=== PATIENT | male | born 1975 | race Caucasian/White ===

== ENCOUNTER 2018-06-23 09:14 | Emergency (ER) | payer MEDICAID ==
[~2018-06-23] VITALS: Ht 170.2 cm; Wt 70.0 kg
[2018-06-23 09:24] VITALS: Ht 170.2 cm; Wt 70.0 kg
[2018-06-23] MEDS ORDERED: LORAZEPAM 2 MG INJ IV ONE (09:30)
--- NOTE | 2018-06-23 10:04 | ERD ---
ER Documentation Chief Complaint Chief Complaint Witnessed SZ lasting aprox 60 sec HPI This is a 42-year-old male who presents for evaluation with apparently was a tonic-clonic seizure, which lasted about 60 seconds, and self resolved. The patient was actually postictal, does have been of liquor store, and was witnessed by others. He did not have any chest pain, he does have a history of alcohol use. He denies any prior history of seizures, he denies any pain currently. He denies prior history of alcohol withdrawal. ROS All systems reviewed and are negative except as per history of present illness. Medications Home Meds No Active Prescriptions or Reported Meds Allergies Allergies: Coded Allergies: No Known Allergy (Unverified , 06/23/18) PMhx/Soc Medical and Surgical Hx: pt denies Medical Hx, pt denies Surgical Hx History of Surgery: No Anesthesia Reaction: No Hx Neurological Disorder: No Hx Respiratory Disorders: No Hx Cardiac Disorders: No Hx Psychiatric Problems: No Hx Miscellaneous Medical Probl: No Hx Alcohol Use: Yes Hx Substance Use: No Hx Tobacco Use: No Smoking Status: Never smoker Physical Exam Vitals Vital Signs Date Temp Pulse Resp B/P (MAP) Pulse Ox O2 O2 Flow FiO2 Time Delivery Rate 06/23/18 99.9 113 20 143/107 100 09:24 (119) Physical Exam Const: Disheveled appearing, Head: Atraumatic Eyes: Normal Conjunctiva ENT: Normal External Ears, Nose and Mouth. Neck: Full range of motion. No meningismus. Resp: Clear to auscultation bilaterally Cardio: Regular rate and rhythm, no murmurs Abd: Soft, non tender, non distended. Normal bowel sounds Skin: No petechiae or rashes Back: No midline or flank tenderness Ext: No cyanosis, or edema Neur: Awake and alert Psych: Normal Mood and Affect Result Diagram: 06/23/18 0940 06/23/18 0940 Results 24 hrs Laboratory Tests Test 06/23/18 09:40 06/23/18 09:41 White Blood Count 5.6 10^3/ul Red Blood Count 3.53 10^6/ul Hemoglobin 9.2 g/dl Hematocrit 28.4 % Mean Corpuscular Volume 80.5 fl Mean Corpuscular Hemoglobin 26.1 pg Mean Corpuscular Hemoglobin Concent 32.4 g/dl Red Cell Distribution Width 22.5 % Platelet Count 131 10^3/UL Mean Platelet Volume 11.1 fl Immature Granulocytes % 0.400 % Neutrophils % 56.3 % Lymphocytes % 28.9 % Monocytes % 10.8 % Eosinophils % 1.4 % Basophils % 2.2 % Nucleated Red Blood Cells % 0.0 /100WBC Immature Granulocytes # 0.020 10^3/ul Neutrophils # 3.2 10^3/ul Lymphocytes # 1.6 10^3/ul Monocytes # 0.6 10^3/ul Eosinophils # 0.1 10^3/ul Basophils # 0.1 10^3/ul Nucleated Red Blood Cells # 0.0 10^3/ul Sodium Level 138 mmol/L Potassium Level 3.0 mmol/L Chloride Level 94 mmol/L Carbon Dioxide Level 24 mmol/L Anion Gap 20 Blood Urea Nitrogen 6 mg/dl Creatinine 0.69 mg/dl Est Glomerular Filtrat Rate mL/min > 60 mL/min Glucose Level 155 mg/dl Calcium Level 9.4 mg/dl Total Bilirubin 0.7 mg/dl Direct Bilirubin 0.00 mg/dl Indirect Bilirubin 0.7 mg/dl Aspartate Amino Transf (AST/SGOT) 182 IU/L Alanine Aminotransferase (ALT/SGPT) 61 IU/L Alkaline Phosphatase 137 IU/L Troponin I < 0.012 ng/ml Total Protein 8.1 g/dl Albumin 4.8 g/dl Globulin 3.30 g/dl Albumin/Globulin Ratio 1.45 Ethyl Alcohol Level < 10.0 mg/dl Bedside Glucose 157 mg/dL Current Medications Medications Dose Sig/Umair Start Time Status Last (Trade) Ordered Route PRN Stop Time Admin Dose Reason Admin Lorazepam 0.5 mg ONCE ONCE 06/23/18 DC 06/23/18 (Ativan) IV 09:30 09:47 06/23/18 09:31 Procedures/[facility] This is a 42-year-old male who presents for what appears to be a new onset tonic-clonic seizure, that was witnessed by bystanders. The episode self resolved, while in the ED he did not have any recurrent episode, given unclear history, and possibility at this time seizure, workup was ordered which included CBC,, and CT brain Noncon. Results were only remarkable for superficial scalp hematoma, his ethanol level was 0, he had no evidence of delirium tremens, and was not altered appearing, I discussed findings with the patient, and recommended follow-up with his primary care doctor for further evaluation of seizures, patient will be reported to [facility], at discharge patient was ambulatory and in no acute distress. Departure Diagnosis: Primary Impression: Seizure disorder Condition: Stable DANNY BAKER MD Jun 23, 2018 10:03
[2018-06-23 12:15] VITALS: BP 122/93; PULSE 98; RESP 18
[2018-06-23] MEDS ORDERED: ACETAMINOPHEN 325 MG TAB PO ONE (12:30)
== END 2018-06-23 12:25 | disposition home or self-care (01) ==
LOC: E/R 09:14
DX: G40.909 Epilepsy, unspecified, not intractable, without status epilepticus (principal)
CPT/HCPCS: 70450; 80053; 80307; 82962; 84484; 85025; 93005; 96374; J2060; Z7502; Z7610